=== PATIENT | female | born 1955 | race Caucasian/White ===

== ENCOUNTER 2017-01-23 04:10 | Inpatient (IN) ==
[2017-01-18 13:33] LABS: MANUAL DIFF NEEDED? NO; URINE MICRO REVIEW NEEDED? NO; URINE SOURCE CLEAN CATCH
[2017-01-18 13:37] LABS: BASO% 0.4 % (0.0-0.8); BILIRUBIN URINE NEGATIVE (NEGATIVE); BLOOD URINE NEGATIVE (NEGATIVE); COLOR YELLOW; EOS# 0.13 X1000 (0.0-0.7); EOS% 1.9 % (0.0-10.0); GLUCOSE URINE NEGATIVE (NEGATIVE); HEMATOCRIT 41.3 % (37.0-47.0); HEMOGLOBIN 13.7 g/dL (12.0-16.0); LEUKOCYTES URINE SMALL (NEGATIVE); LYMPH% 25.9 % (20.5-51.1); MCH 30.6 PG (27-31); MCHC 33.2 g/dL (33-37); MCV 92.4 FL (81-99); MONO# 0.44 X1000 (0.11-0.59); MONO% 6.3 % (1.7-9.3); MPV 11.2 FL (7.4-10.4); NEUT% 65.5 % (42.2-75.2); NITRITE URINE NEGATIVE (NEGATIVE); PH URINE 6.5; PLT 199 X1000 (130-400); PROTEIN URINE TRACE mg/dL (NEGATIVE); RBC 4.47 XMIL (4.2-5.4); SP GRAVITY URINE 1.025; TURBIDITY URINE CLEAR (CLEAR); UROBILINOGEN URINE 2 mg/dL (NORMAL)
[2017-01-18 13:38] LABS: UR EPITHELIAL CELLS <10 /HPF (<10); URINE BACTERIA 1+ /HPF; URINE RBC <10 /HPF (<10)
[2017-01-18 13:45] LABS: INR 1.04; PROTIME 10.9 Seconds (9.2-11.7); PTT 25.3 Seconds (22.0-36.0)
[2017-01-18 14:16] LABS: CALCIUM 9.5 mg/dL (8.8-10.2)
--- NOTE | 2017-01-18 15:52 | EKG Report ---
Test Performed on : 01/18/2017 12:54:29 PM Test Reason : PAT Blood Pressure : / mmHG Vent. Rate : 086 BPM Atrial Rate : 086 BPM P-R Int : 138 ms QRS Dur : 092 ms QT Int : 364 ms P-R-T Axes : 068 050 038 degrees QTc Int : 435 ms Normal sinus rhythm. Normal ECG When compared with ECG of 16-DEC-2012 08:30, No significant change was found Confirmed by Favian LINDSAY, Mark Mandujano ([id number]) on 01/19/2017 8:19:14 AM
[2017-01-23] MEDS ORDERED: REGLAN ONE (06:36)
[2017-01-23] MEDS ORDERED: LR 1,000 ML ONE (06:36)
[2017-01-23] MEDS ORDERED: COLACE ONE (06:36)
[2017-01-23] MEDS ORDERED: LYRICA ONE (06:36)
[2017-01-23] MEDS ORDERED: PEPCID ONE (06:36)
[2017-01-23] MEDS ORDERED: KEFZOL 2 GM/D5W 2 GM/50 ML IVPB ONE (06:37)
[2017-01-23] MEDS ORDERED: DIPRIVAN 1% 500 MG/50 ML BOTTLE ONE (06:58)
[2017-01-23] MEDS ORDERED: SODIUM CHLORIDE 0.9% ONE (08:19)
[2017-01-23] MEDS ORDERED: NEOSPORIN G.U. IRRIGANT ONE (08:19)
[2017-01-23] MEDS ORDERED: DURAMORPH ONE (08:19)
[2017-01-23] MEDS ORDERED: VANCOMYCIN ONE (08:19)
[2017-01-23] MEDS ORDERED: TORADOL ONE (08:19)
[2017-01-23] MEDS ORDERED: MARCAINE 0.25% PF/EPI 1:200,000 ONE (08:20)
[2017-01-23] MEDS ORDERED: CLAVE SECONDARY SET 11953 ONE (08:20)
[2017-01-23] MEDS ORDERED: EXPAREL 1.3% ONE (08:20)
[2017-01-23] MEDS ORDERED: CYKLOKAPRON 1,000 MG/NS 2,000 MG/200 ML IVPB ONE (08:25)
[2017-01-23 09:46] LABS: URINE MICRO REVIEW NEEDED? NO; URINE SOURCE CATH
[2017-01-23 09:57] LABS: BILIRUBIN URINE NEGATIVE (NEGATIVE); BLOOD URINE NEGATIVE (NEGATIVE); COLOR YELLOW; GLUCOSE URINE NEGATIVE (NEGATIVE); LEUKOCYTES URINE NEGATIVE (NEGATIVE); NITRITE URINE NEGATIVE (NEGATIVE); PH URINE 6.5; PROTEIN URINE TRACE mg/dL (NEGATIVE); SP GRAVITY URINE 1.024; TURBIDITY URINE CLEAR (CLEAR); UROBILINOGEN URINE NORMAL (NORMAL)
[2017-01-23 09:58] LABS: UR EPITHELIAL CELLS <10 /HPF (<10); URINE BACTERIA NEGATIVE /HPF; URINE RBC <10 /HPF (<10); URINE WBC <10 /HPF (<10)
--- NOTE | 2017-01-23 10:47 | HISTORY AND PHYSICAL ---
CHIEF COMPLAINT: Right knee pain. HISTORY OF PRESENT ILLNESS: Ms. Lopez is a 61-year-old, white female who is experiencing right knee pain for the past year and also stiffness. Her pain is worse with walking and standing for long periods of time. She denies any injury. She has failed conservative measures and request that we proceed with surgical intervention. PRIMARY CARE PROVIDER: Dr. Akil Calix. ALLERGIES: Sulfa. PAST MEDICAL HISTORY: 1. Batres's esophagus. 2. Osteoarthritis. 3. Hypothyroidism. 4. Hypertension. 5. Sleep apnea. 6. Hypercholesterolemia. PAST SURGICAL HISTORY: 1. Hysterectomy. 2. Cholecystectomy. SOCIAL HISTORY: The patient is a nonsmoker. CURRENT MEDICATIONS: Caltrate, Nexium, Lasix, lisinopril, simvastatin, levothyroxine, potassium. REVIEW OF SYSTEMS: A 10 point review of systems was performed with the patient and all was negative except what was mentioned in the HPI. PHYSICAL EXAMINATION: GENERAL: The patient is resting comfortably at bedside and she is able to articulate and answer all questions fully. HEENT: Head is normocephalic. Nares are patent. Throat without exudate. NECK: Supple. HEART: Regular rate and rhythm. No murmurs, gallops, or rubs. LUNGS: Clear to auscultation bilaterally. ABDOMEN: Round. Bowel sounds are present. It is nontender. NEUROLOGICAL: She discerned soft touch to the affected extremity. Gross motor function is intact. MUSCULOSKELETAL: Examination of her right knee reveals full range of motion with pain and crepitus on extension. Her knee is stable to varus and valgus stresses. There is no joint line tenderness. There is mild effusion noted in her right knee. Her right leg is neurovascularly intact. OTHER: She has IV access in her left hand. IMPRESSION: Right knee degenerative joint disease. PLAN: Right total knee arthroplasty. The risks and benefits of surgery were explained to the patient including risks of anesthesia, , bleeding, infection, damage to tendons, ligaments, nerves, and blood vessel, the possibility of bleeding, blood clots, and other imponderables were discussed with the patient. She wishes to proceed with operative management at this time. Dictated by MARCELINO Hurst for Sam Dai MD cc: MARCELINO Hurst MD
[2017-01-23] MEDS ORDERED: CYKLOKAPRON 1,000 MG/NS 1,000 MG/100 ML IVPB ONE (10:54)
[2017-01-23] MEDS ORDERED: FENTANYL ONE (11:26)
[2017-01-23] MEDS ORDERED: VERSED ONE (11:26)
[2017-01-23] MEDS ORDERED: NS 1,000 ML ONE (11:26)
[2017-01-23] MEDS ORDERED: OFIRMEV 1000 MG/ISOTONIC SOLN 1,000 MG/100 ML BOTTLE ONE (11:33)
[2017-01-23] MEDS ORDERED: ZOFRAN ONE (11:33)
[2017-01-23] MEDS ORDERED: DECADRON ONE (11:33)
[2017-01-23] MEDS ORDERED: LR 2,000 ML ONE (11:33)
[2017-01-23] MEDS ORDERED: XYLOCAINE-MPF 2% ONE (11:33)
[2017-01-23] MEDS ORDERED: MILK OF MAGNESIA PO PRN (13:15)
[2017-01-23] MEDS ORDERED: ZOFRAN IV PRN (13:15)
[2017-01-23] MEDS ORDERED: AMBIEN PO PRN (13:15)
[2017-01-23] MEDS ORDERED: MORPHINE IV PRN (13:15)
--- NOTE | 2017-01-23 13:27 | OPERATIVE NOTE ---
PROCEDURE DATE: 01/23/2017 PREOPERATIVE DIAGNOSIS: Right knee degenerative joint disease. POSTOPERATIVE DIAGNOSIS: Right knee degenerative joint disease. PROCEDURE PERFORMED: Right total knee arthroplasty using a [employer] size 6 femoral component, size 6 tibial base plate, a 10 mm articular insert, and a 32 mm patellar component. ANESTHESIA: Spinal. SURGEON: Sam Dai MD JUDICIAL REPORTER: Candice England COMPLICATIONS: None. BLOOD LOSS: Minimal. DRAINS: Hemovac x1. TOURNIQUET TIME: Approximately an hour and a half. DESCRIPTION OF PROCEDURE: The patient was brought to the operative suite and placed in supine position. After successful administration of general anesthesia, a well-padded tourniquet was placed on the right proximal thigh. The right lower extremity was prepped and draped in the usual sterile fashion. Leg was exsanguinated. Tourniquet insufflated to 350 torr. A longitudinal incision was made beginning at the superior pole of the patella and extended distally to the tibia tuberosity. It was dissected sharply through the skin. Full-thickness skin flaps were elevated medially and laterally. A medial arthrotomy was made with a vastus snip. The medial capsule was elevated off the medial tibial plateau. The prepatellar fat pad, ACL, PCL, medial meniscus, and lateral meniscus were excised. A drill was entered in the center of the distal femur. An intramedullary guide was placed. Distal cutting block was pinned into place, distal cut was made with the oscillating saw. The femur was sized to size 6, size 6 guide was used for the chamfer cuts, anterior cuts, posterior cuts. The box cutting block was then pinned into place. A box cut was made with a box osteotome and the oscillating saw. Posterior condyle osteophytes removed with curved osteotome and rongeur. Attention was then directed to the tibia. A drill was entered in the center of the tibia. An intramedullary guide was placed. Alignment checked with drop cedric referencing off the anterior cortex of the tibia and the second ray of the foot, and taking 2 mm off the low side of the tibia which in this case was medially. The tibial cutting block was pinned into place. The articular surface of the tibial plateau was removed with an oscillating saw. Flexion and extension gaps were checked and balanced at 10 mm. The tibia sized to size 6, a size 6 guide was used for the fin punch. The tibial trial, femoral trial, and 10 mm articular insert were placed, taken through range of motion found to have excellent alignment, balancing, and range of motion. Attention was then directed to the patella and 9 mm of the articular surface of the patella removed with an oscillating saw. Patella sized to a size 32, a size 32 guide was used to drill peg holes. The lateral facet was chamfered 30 to 45 degrees. Patella trial was placed, taken through range of motion found to have excellent patella tracking. All trials were then removed. The knee was copiously irrigated and dried, being certain all bone debris was removed. The tibial component, femoral component, and patellar component were cemented into place, excess cement being removed with a [place]. Once the cement had hardened, excess cement was again removed with an osteotome. The knee was again copiously irrigated and dried, being certain all bone and cement debris were removed. The trial articular insert was removed. The knee was copiously infiltrated with Exparel, including the posterior capsule, anterior capsule, medial and lateral collateral ligaments, anterior musculature, and subcutaneous tissue. The definitive articular insert was then locked on the tibia and the knee was again taken through range of motion. Again, found to have excellent alignment, balancing, range of motion, and patellar tracking. A drain was placed exiting superior laterally and buried in the lateral gutter. The medial arthrotomy was closed with 0 Vicryl. Skin edge approximated with 2-0 Vicryl. Skin was closed with Monocryl subcuticular and Dermabond and a sterile dressing was applied. The patient tolerated the procedure well without complication. At the end of the procedure, all counts correct x2. The patient transferred to the recovery room in stable condition. cc: Sam Dai MD
[2017-01-23] MEDS: OXY IR PO PRN ×3 (13:29→23:19)
[2017-01-23] MEDS: ULTRAM PO SCH ×2 (15:27→21:56)
[2017-01-23] MEDS: NS 1,000 ML IV SCH ×2 (15:28→21:55)
[2017-01-23] MEDS: TYLENOL PO SCH (18:03)
[2017-01-23] MEDS: KEFZOL 2 GM/D5W 2 GM/50 ML IVPB IV SCH (18:03)
[2017-01-23] MEDS ORDERED: CELEBREX PO SCH (21:00)
[2017-01-23] MEDS: PERIDEX MT SCH (21:53)
[2017-01-23] MEDS: LYRICA PO SCH (21:53)
[2017-01-23] MEDS: COLACE PO SCH (21:54)
[2017-01-24] MEDS: TYLENOL PO SCH ×3 (00:42→12:39)
[2017-01-24] MEDS: KEFZOL 2 GM/D5W 2 GM/50 ML IVPB IV SCH (00:43)
[2017-01-24] MEDS: ULTRAM PO SCH ×2 (04:35→12:39)
[2017-01-24] MEDS: NS 1,000 ML IV SCH (05:10)
[2017-01-24 05:40] LABS: HEMATOCRIT 31.5 % (37.0-47.0); HEMOGLOBIN 10.6 g/dL (12.0-16.0)
[2017-01-24 05:56] LABS: AGAP 13; BUN 11 mg/dL (8-22); CALCIUM 8.8 mg/dL (8.8-10.2); CHLORIDE 102 mmol/L (98-107); COSMO 275; POTASSIUM 4.6 mmol/L (3.5-5.1); SODIUM 137 mmol/L (136-145); TCO2 22 mmol/L (25-35)
[2017-01-24] MEDS ORDERED: XARELTO PO SCH (06:00)
[2017-01-24] MEDS: OXY IR PO PRN ×3 (06:51→13:19)
[2017-01-24 08:18] VITALS: BP 145/63
[2017-01-24] MEDS ORDERED: LASIX PO SCH (09:00)
[2017-01-24] MEDS ORDERED: NEXIUM PO SCH (09:00)
[2017-01-24] MEDS ORDERED: DECADRON IV ONE (09:00)
[2017-01-24] MEDS ORDERED: CALTRATE 600 PO SCH (09:00)
[2017-01-24] MEDS ORDERED: ZOCOR PO SCH (09:00)
[2017-01-24] MEDS ORDERED: PEPCID PO SCH (09:00)
[2017-01-24] MEDS ORDERED: PRINIVIL PO SCH (09:00)
[2017-01-24] MEDS ORDERED: KLOR-CON PO SCH (09:00)
[2017-01-24] MEDS ORDERED: SYNTHROID PO SCH (09:00)
[2017-01-24] MEDS: PERIDEX MT SCH (09:42)
[2017-01-24] MEDS: COLACE PO SCH (09:44)
[2017-01-24] MEDS: LYRICA PO SCH (09:48)
--- NOTE | 2017-01-24 11:50 | DISCHARGE SUMMARY ---
ADMISSION DATE: 01/23/2017 DISCHARGE DATE: 01/24/2017 DISCHARGE DIAGNOSIS: Right knee degenerative joint disease, status post right total knee arthroplasty. DISCHARGE MEDICATIONS: See discharge medication list. DISPOSITION: The patient is discharged home with home health. DISCHARGE INSTRUCTIONS: Instructions for total knee arthroplasty protocol and instructed to return to see Dr. Dai next . HOSPITAL COURSE: On the day of admission, patient underwent a right total knee arthroplasty. Her postoperative course was unremarkable. At discharge, she is afebrile, tolerating a regular diet, ambulating well with physical therapy. Yesterday she walked 30 feet. Her wound is clean, dry and intact without sign of infection. 180 mL was obtained from the Hemovac. Her hemoglobin is 10.6, and her hematocrit is 31.5. She is discharged to rehab in stable condition with instructions to follow up as described above. Dictated by MARCELINO Hurst for Sam Dai MD cc: MARCELINO Hurst MD
== END 2017-01-24 14:54 | disposition home health service (06) ==
LOC: SURHOLD 04:10 → 4N 09:20
PROVIDERS: ADMIT Orthopaedic Surgery; ATTEND Orthopaedic Surgery